=== PATIENT | female | born 1965 | race Caucasian/White ===

== ENCOUNTER → 2017-01-30 | Outpatient (CLI) | payer OTHER ==
--- NOTE | ~2017-01-30 | MR82 ---
[facility]. [facility] A Service of [facility] RADIOLOGY TEXT RESULTS PATIENT: JULIETA BRAY LOCATION: [facility] : 63 UNIT #: [id number] AGE: [address]: Avelino Richey Jr, MD SEX: F ORDER DR: [id number] [address] [id number] O MR#: [id number] Acc #: [id number] NAME: JULIETA BRAY : 1965 SEX: F STUDY DATE/TIME: 01/30/2017 10:31 UNIT: [facility] ROOM: STUDY DESCRIPTION: MR Hip Wo Contrast Marvin Attending Physician: Avelino Richey Jr., M.D. Referring Physician: Avelino Richey Jr., M.D. Ordering Physician: Avelino Richey Jr., M.D. Primary Care Physician: Avelino Richey Jr., M.D. MRI CENTER REPORT This report is preliminary unless electronic signature is present. EXAM MRI pelvis and hips without contrast 01/30/2017 COMPARISON None. HISTORY History - order states MRI bilateral knees and hips. Pain and edema. History sheet states longterm patient. No known injury. No surgery. Bilateral hip and bilateral knee pain with decreased mobility. Symptoms progressive over 2 years. Large body habitus. Bilateral knee MRI cancelled as the patient refused. Pelvis, hip exam was reportedly aborted with no repeats performed due to patient pain. History of renal and heart failure. FINDINGS The hips show no effusion, fracture, osteonecrosis, or arthritic change. The remainder of the bony pelvis, sacrum, and SI joints are within normal limits. Lymph nodes are prominent in number with some prominent in size along the iliac chains and within the groin. Correlate clinically regarding lymphadenopathy workup. The uterus is present and unremarkable. There is generalized mild muscle atrophy. There is mild lower lumbar facet arthrosis. IMPRESSION 1. The musculoskeletal pelvis and hips are normal. 2. Lower lumbar facet arthrosis. 3. Lymph nodes along the iliac chains and in the groin are prominent in number and some are prominent in size. Correlate clinically [facility] A Service of [facility] & [facility] RADIOLOGY TEXT RESULTS PATIENT: JULIETA BRAY LOCATION: [facility] : 63 UNIT #: [id number] AGE: [address]: Avelino Richey Jr, MD SEX: F ORDER DR: regarding the need for lymphadenopathy workup. 1. Dictated by... Keely Cintron M.D. THIS IS AN ELECTRONICALLY VERIFIED REPORT Keely Cintron M.D. at 02/02/2017 9:40 AM [place] TD: 01/31/2017 16:28 JOB #: [id number] MRI CENTER REPORT Page 1 of 1
== END | disposition home or self-care (01) ==
LOC: SMRI 09:51
DX: R60.0 Localized edema (principal); M25.561 Pain in right knee; M25.562 Pain in left knee; M25.551 Pain in right hip; M25.552 Pain in left hip
CPT/HCPCS: 73721